=== PATIENT | male | born 1980 | race Caucasian/White ===

== ENCOUNTER 2020-05-17 07:09 | Emergency (ER) | payer SELFPAY ==
[~2020-05-17] VITALS: Ht 170.2 cm; Wt 79.4 kg
[2020-05-17 07:10] VITALS: BP 154/97
[2020-05-17] MEDS ORDERED: CEPH500C5 PO (07:39)
[2020-05-17] MEDS ORDERED: SULF1TAB49 PO (07:39)
[2020-05-17] MEDS ORDERED: bacitracin 15gm ointment TP ONE (07:40)
[2020-05-17] MEDS ORDERED: TETanus/Pertussis (Acell)/Diphther VAC/PF (Tdap-Adult) 0.5ml syringe IMVAC ONE (07:40)
[2020-05-17] MEDS ORDERED: CefTRIAXone 250MG inj IM ONE (07:50)
[2020-05-17] MEDS ORDERED: CefTRIAXone 1000mg IM Kit (w/lidocaine diluent) IM ONE (07:50)
== END 2020-05-17 08:27 | disposition home or self-care (01) ==
LOC: ER 07:09
DX: S61.211A Laceration without foreign body of left index finger without damage to nail, initial encounter (principal); L03.012 Cellulitis of left finger; Z79.2 Long term (current) use of antibiotics; Z79.899 Other long term (current) drug therapy; W45.8XXA Other foreign body or object entering through skin, initial encounter; Y93.89 Activity, other specified; Y92.89 Other specified places as the place of occurrence of the external cause; Y99.8 Other external cause status
CPT/HCPCS: 90471; 90715; 96372; 99284; J0696

== ENCOUNTER 2020-06-29 03:54 | Emergency (ER) | payer MEDICARE, MEDICAID ==
[~2020-06-29] VITALS: Ht 170.2 cm; Wt 77.3 kg
[~2020-06-29 03:54] MED LIST: CEPH-585 PO
[2020-06-29] MEDS ORDERED: fentaNYL/PF 50MCG/1 ML 2ML syringe IV ONE (04:00)
[2020-06-29] MEDS ORDERED: ondansetron inj. 24 MG in normal saline 250ml IV soln 228 ML IV SCH (04:00)
[2020-06-29] MEDS ORDERED: ondansetron/PF 4mg/2ml inj IV ONE ×2 (04:10→04:15)
[2020-06-29] MEDS ORDERED: propofol 10mg/ml 20ml vial IV ONE (04:20)
--- NOTE | 2020-06-29 04:42 | NUR ---
MODERATE SEDATION OF R SHOUDER DISLOCATION IN PROGRESS. ALSO I&D OF LEFT UPPER ARM ABSCESS
--- NOTE | 2020-06-29 04:44 | NUR ---
REDUCTION OF R SHOUDER SUCCESSFUOL. POST REDUCTION XRAY COMPLETED.
[2020-06-29] MEDS ORDERED: SULF1TAB45 PO (04:59)
[2020-06-29 05:10] VITALS: BP 140/89
== END 2020-06-29 05:23 | disposition home or self-care (01) ==
LOC: ER 03:55
DX: S43.084A Other dislocation of right shoulder joint, initial encounter (principal); L02.414 Cutaneous abscess of left upper limb; Z79.899 Other long term (current) drug therapy; W01.0XXA Fall on same level from slipping, tripping and stumbling without subsequent striking against object, initial encounter; Y93.89 Activity, other specified; Y92.89 Other specified places as the place of occurrence of the external cause; Y99.8 Other external cause status
CPT/HCPCS: 10060; 23650; 73030; 94799; 96374; 96375; 99152; 99285; J2405; J3010

== ENCOUNTER 2024-07-04 08:43 | Emergency (ER) | payer MEDICAID, MEDICARE ==
[~2024-07-04] VITALS: Ht 170.2 cm; Wt 66.7 kg
[2024-07-04 08:43] VITALS: BP 141/88; PULSE 80; RESP 15; TEMP 99; O2SAT 100
[2024-07-04] MEDS ORDERED: SULF1TAB45 PO (09:12)
[2024-07-04] MEDS ORDERED: CEPH-585 PO (09:12)
== END 2024-07-04 09:21 | disposition home or self-care (01) ==
LOC: ER 08:43
DX: S60.460A Insect bite (nonvenomous) of right index finger, initial encounter (principal); W57.XXXA Bitten or stung by nonvenomous insect and other nonvenomous arthropods, initial encounter; Y93.89 Activity, other specified; Y92.89 Other specified places as the place of occurrence of the external cause; Y99.8 Other external cause status
CPT/HCPCS: 99283

== ENCOUNTER 2024-10-12 23:45 | Emergency (ER) | payer MEDICARE ==
[~2024-10-12] VITALS: Ht 170.2 cm; Wt 80.8 kg
--- NOTE | 2024-10-13 00:23 | Physician Documentation ---
History of Present Illness ~ Chief Complaint: Bite-insect Stated Complaint: SPIDER BITE Time Seen by MD: 00:22 HPI Patient presents to the emergency room for evaluation of wound to his left forearm. He believes it is a spider bite. No fevers. Started three days ago. Tetanus within 5 years?: Yes (MAY 2020) Medication Reconciliation Allergies: Coded Allergies: No Known Allergies (Unverified , 10/12/24) Scheduled Cephalexin*Monohydrate* (Keflex*), 1 CAP PO QID Past Medical History Past Medical History: No Pertinent History Past Surgical History: noncontributory Alcohol Use: None Drug Use: none Review of Systems ROS All review of systems negative except as per HPI Physical Exam Vital Signs: Temperature: 97.9, Source: Oral, Heart Rate: 70, Respiratory Rate: 16, BP: 137/82, Pulse Oximetry: 98, Weight: 80.800 Oxygen Flow Rate: 0 Physical Exam General: Patient is awake, alert, oriented x4 in no acute distress Head: Normocephalic and atraumatic. Eyes: Conjunctival normal. EOMI. PERRL. ENT: Mucous membranes moist. Neck: Supple, trachea is midline. Chest: Clear to auscultation bilaterally without rales, rhonchi, or wheezes. There is no accessory muscle use or retractions. Cardiac: RRR without murmurs, gallops, or rubs. Extremity: Draining abscess to patient's left forearm with no associated cellulitis. Abscess measures 3 cm x 3 cm. Procedures Procedures Incision and drainage: Status post informed verbal consent patient was sterilely cleaned and draped. 1% lidocaine with epinephrine was utilized to anesthetize patient's abscess who a total of 2 cc. Using 11. Blade incision and drainage performed with no purulence expressed only blood. Wound was de loculated. Total time of procedure 5 minutes. Progress Results/Orders Results/Orders Orders - OSORIO SANCHES MD Dressing Orders (10/13/24 00:26) Laceration/I&D Tray Set Up (10/13/24 00:26) Lidocaine 1% W/Epi 1:100,000 (Xylocaine (10/13/24 00:55) Completed Orders - OSORIO SANCHES MD Lidocaine 1% W/Epi 1:200,000 (Xylocaine (10/13/24 00:30) Bacitracin Ointment (Bacitracin Ointment (10/13/24 00:30) Ondansetron Disint. Tablet (Zofran Odt T (10/13/24 00:30) Sulfamethox/Trimetho. Ds Tab (Septra Ds (10/13/24 00:30) Medications Received in ER Medications (Trade) Dose Ordered Sig/Regina Route PRN Reason Start Time Stop Time Status Last Admin Dose Admin (bacitracin ointment) 1 applic ONCE ONCE TP 10/13/24 00:30 10/13/24 00:31 DC 10/13/24 00:42 1 APPLIC (Zofran ODT tablet) 4 mg ONCE ONCE PO 10/13/24 00:30 10/13/24 00:31 DC 10/13/24 00:42 4 MG (Septra DS tab) 1 tab ONCE ONCE PO 10/13/24 00:30 10/13/24 00:31 DC 10/13/24 00:42 1 TAB Vital Signs 10/12/24 23:56 Temp 97.9 Pulse 70 Resp 16 B/P (MAP) 137/82 Pulse Ox 98 O2 Flow Rate 0 Medical Decision Making Findings Patient presented to the emergency room with draining abscess. Incision and drainage performed. Antibiotics initiated. Departure Disposition: HOME / SELF CARE / HOMELESS Impression: Primary Impression: Abscess Condition: Stable Discharge Instructions: Abscess, Care After Referrals: NO PRIMARY CARE PROVIDER (PCP) Prescriptions Sulfamethoxazole/Trimethoprim (Bactrim Ds Tablet) 800 Mg-160 Mg Tablet 1 TAB PO Q12H for 10 Days, #20 TAB Prov: OSORIO SANCHES MD 10/13/24 Education Educated: Patient Educated regarding: diagnosis, treatment, need for follow up Signature Scribe Signature: No scribe Attestation: The note accurately reflects work and decisions made by me.Osorio Sanches MD 10/13/24 00:57 OSORIO SANCHES MD Oct 13, 2024 00:23
[2024-10-13] MEDS: sulfamethoxazole/trimethoprim DS (800/160mg) tablet PO ONE (00:42)
[2024-10-13] MEDS: ondansetron 4mg rapidly disintigrating tab PO ONE (00:42)
[2024-10-13] MEDS: bacitracin 15gm ointment TP ONE (00:42)
[2024-10-13] MEDS ORDERED: SULF1TAB49 PO (00:57)
[2024-10-13] MEDS: LIDOcaine 1% W/epiNEPHrine 1:200,000 10ml vial IJ ONE (00:59)
[2024-10-13] MEDS: LIDOcaine 1% W/epiNEPHrine 1:100,000 20ml vial SQ ONE (00:59)
[2024-10-13 01:03] VITALS: BP 124/87; PULSE 68; RESP 16; TEMP 97.9; O2SAT 98
== END 2024-10-13 01:08 | disposition home or self-care (01) ==
LOC: ER 23:45
DX: L02.414 Cutaneous abscess of left upper limb (principal)
CPT/HCPCS: 10060; 99283; 99284; A6449